=== PATIENT | male | born 1950 | race Caucasian/White ===

== ENCOUNTER 2022-07-08 08:52 | Emergency (ER) | payer MEDICARE ==
[2022-07-08 10:07] LABS: Anion Gap 13 mmol/L (10-20); BUN (Urea Nitrogen) 25 mg/dL (8.4-25.7); Calc. Creatinine Clearance 0 mL/min (70-130); Calcium 9.1 mg/dL (7.8-10.44); Carbon Dioxide 23 mmol/L (23-31); Chloride 107 mmol/L (98-107); Estimated GFR 93; Glucose 98 mg/dL (83-110); Potassium 4.4 mmol/L (3.5-5.1); Sodium 139 mmol/L (136-145)
[2022-07-08 10:42] LABS: #Basophils 0.1 10x3/uL (0.0-0.2); #Eosinphils 0.1 10x3/uL (0.0-0.5); #Monocytes 0.4 10x3/uL (0.0-1.1); #Neutrophils 4.1 10x3/uL (1.5-8.4); %Basophils 1.1 % (0.0-2.0); %Eosinophils 2.1 % (0.0-6.0); %Lymphocytes 23.1 % (18.0-47.0); %Monocytes 6.7 % (0.0-10.0); %Neutrophils 66.7 % (40.0-75.0); Hemoglobin 14.3 g/dL (13.5-17.5); Mean Corpuscular HGB CONC 34.8 g/dL (32.0-36.0); Mean Corpuscular Hemoglobin 34.6 pg (27.0-33.0); Mean Corpuscular Volume 99.5 fl (81.2-95.1); Mean Platelet Volume 10.6 fl (7.4-10.4); Platelet Count 544 10x3/uL (150-450); RBC Distribution Width 13.2 % (11.5-14.5); Red Blood Cell (RBC) Count 4.13 10x6/uL (4.32-5.72); White Blood Cell (WBC) Count 6.1 10x3/uL (3.5-10.5)
== END 2022-07-08 11:03 | disposition home or self-care (01) ==
LOC: CSHERS 08:52
DX: H53.9 Unspecified visual disturbance (principal); E78.00 Pure hypercholesterolemia, unspecified
CPT/HCPCS: 70545; 70551; 80048; 83735; 85025